=== PATIENT | male | born 1985 | race African-American/Black ===

== ENCOUNTER 2018-08-10 15:13 | Emergency (ER) | payer SELFPAY ==
[~2018-08-10] VITALS: Ht 185.4 cm; Wt 72.7 kg
[2018-08-10 15:16] VITALS: BP 121/80; TEMP 98.6
[2018-08-10] MEDS ORDERED: AMOXICILLIN 50500 MG PO (15:36)
[2018-08-10] MEDS ORDERED: LEXAPRO20 MG PO (16:55)
[2018-08-10 18:00] VITALS: PULSE 82
== END 2018-08-10 18:00 | disposition home or self-care (01) ==
LOC: COL.ER 15:13
DX: F32.9 Major depressive disorder, single episode, unspecified (principal); F43.9 Reaction to severe stress, unspecified; J45.909 Unspecified asthma, uncomplicated; F17.210 Nicotine dependence, cigarettes, uncomplicated

== ENCOUNTER 2019-04-27 08:34 | Emergency (ER) | payer SELFPAY ==
[~2019-04-27] VITALS: Ht 185.4 cm; Wt 74.1 kg
[~2019-04-27 08:34] MED LIST: AMOXICILLIN 50500 MG PO; LEXAPRO20 MG PO
[2019-04-27 08:42] VITALS: BP 125/83; TEMP 99.2
[2019-04-27] MEDS ORDERED: AMOXICILLIN 8751 TAB PO (08:57)
[2019-04-27 09:42] VITALS: PULSE 65
== END 2019-04-27 09:42 | disposition home or self-care (01) ==
LOC: COL.ER 08:34
DX: K02.9 Dental caries, unspecified (principal); K04.7 Periapical abscess without sinus; F17.210 Nicotine dependence, cigarettes, uncomplicated; F12.90 Cannabis use, unspecified, uncomplicated
CPT/HCPCS: J1885

== ENCOUNTER 2021-04-06 09:05 | Day surgery (SDC) | payer OTHER ==
[~2021-04-06 09:05] MED LIST changes: +AMOXICILLIN 8751 TAB PO
--- NOTE | 2021-04-06 09:09 | NUR ---
Patient admitted to room 7 ambulatory and is alert and oriented x3. Voices understanding of surgery and consent signed. Covid swab done on arrival and sent to lab.
--- NOTE | 2021-04-06 09:42 | NUR ---
Notified by lab that rapid swab was positive. Dr. Edge in the room and patient informed of positive results. States that he does not have any symptoms. States that his place of employment has had workers that have had Covid. Instructed that the Health department will be contacting him with further instructions. IV discontinued and allowed to dress. Patient has kept mask on at all times. Escorted to patient entrance and dismissed to home. Surgery will be rescheduled in appromatiely six weeks.
[2021-04-06] MEDS ORDERED: PROVENTIL0.09 MG/A1 IH (10:44)
== END 2021-04-06 10:00 | disposition home or self-care (01) ==
LOC: SDCO 09:05
DX: U07.1 COVID-19 (principal); J45.909 Unspecified asthma, uncomplicated; F17.290 Nicotine dependence, other tobacco product, uncomplicated; Z53.8 Procedure and treatment not carried out for other reasons; Z79.899 Other long term (current) drug therapy; Z91.013 Allergy to seafood
CPT/HCPCS: J2704; J3010

== ENCOUNTER 2021-05-23 09:53 | Day surgery (SDC) | payer OTHER ==
[~2021-05-23] VITALS: Ht 188 cm; Wt 77.6 kg
[~2021-05-23 09:53] MED LIST changes: +PROVENTIL0.09 MG/A1 IH
[2021-05-23 10:37] VITALS: BP 130/80; PULSE 62; TEMP 98.1
--- NOTE | 2021-05-23 10:44 | NUR ---
TO RM 5 AT 1013- CALL LIGHT IN REACH GIRLFRIEND TONY AT BEDSIDE.
[2021-05-23] MEDS ORDERED: ULTRAM 50MG TAB50 MG PO (15:04)
[2021-05-23 15:40] VITALS: BP 133/93; PULSE 55; TEMP 97.3
--- NOTE | 2021-05-23 15:40 | NUR ---
TO RM 5 PER CART FROM PACU. SLEEPING SOUNDLY, OPENS EYES WITH TACTILE STIMULATION AND FALLS BACK TO SLEEP. INCISION SITES COVERED WITH SKIN ADHESIVE, CLEAN DRY INTACT. NO SIGNS OF PAIN OR DISTRESS. GIRLFRIEND AT BEDSIDE.
[2021-05-23 15:55] VITALS: BP 137/85; PULSE 55
[2021-05-23 16:10] VITALS: BP 127/85; PULSE 51
--- NOTE | 2021-05-23 16:10 | NUR ---
CONTINUES TO SLEEP QUIETLY
[2021-05-23 16:25] VITALS: BP 125/74; PULSE 62
--- NOTE | 2021-05-23 16:25 | NUR ---
PATIENT AWAKEN TO TAKE A FEW DRINKS OF WATER AND FELL BACK TO SLEEP.
[2021-05-23 16:55] VITALS: BP 126/88; PULSE 57
--- NOTE | 2021-05-23 16:55 | NUR ---
MORE AWAKE AND TAKING BITS OF APPLE SAUCE. RECEIVED APPLE JUICE AND PATIENT DRANK IT FAST. ONCE HE DRANK IT HE THREW IT BACK UP. STATED HE ISN'T HAVING ENOUGH PAIN FOR PAIN MEDICINE AND DENIES NAUSEA AT THIS TIME.
--- NOTE | 2021-05-23 17:05 | NUR ---
AMBULATED TO BATHROOM WITH 2 ASSIST TO AND FROM BATHROOM. OFFERED TO HAVE PATIENT LAY BACK DOWN. GISEL STATED HE WAS READY TO GO HOME.
--- NOTE | 2021-05-23 17:25 | NUR ---
RECEIVED DISCHARGE INSTRUCTIONS AND VERBALIZED UNDERSTANDING. DISCONTINUED IV AND INT. PATIENTS GIRLFRIEND HELPING HIM GET DRESSED.
--- NOTE | 2021-05-23 17:35 | NUR ---
PATIENT YELLING OUT THAT HE IS HAVING RIGHT SHOULDER PAIN. RECEIVED ULTRAM 5OMG PO WITH SIP OF WATER. RECEIVED WARM BLANKETS TO RIGHT SHOULDER.
--- NOTE | 2021-05-23 17:50 | NUR ---
STATED IS IS SOME BETTER. ENCOURAGED HIM TO PASS GAS IT WILL HELP WITH PAIN.
--- NOTE | 2021-05-23 18:00 | NUR ---
DISCHARGED PER WC BY NURSING STAFF TO PRIVATE CAR IN CARE OF GIRLFRIENShruti JIMENEZ.
== END 2021-05-23 18:15 | disposition home or self-care (01) ==
LOC: SDCO 09:53
DX: K40.90 Unilateral inguinal hernia, without obstruction or gangrene, not specified as recurrent (principal); J45.909 Unspecified asthma, uncomplicated; F17.210 Nicotine dependence, cigarettes, uncomplicated; Z79.899 Other long term (current) drug therapy; Z86.16 Personal history of COVID-19
CPT/HCPCS: C1781; J0690; J1100; J1885; J2405; J2704; J3010; J7120